=== PATIENT | female | born 2000 | race Two or more races ===

== ENCOUNTER → 2023-07-09 | Outpatient (CLI) | payer OTHER | LOC: M PLALAB 15:41 | PROVIDERS: ATTEND Advanced Practice Midwife | DX: O02.1 Missed abortion (principal) ==

== ENCOUNTER → 2023-08-19 | Outpatient (CLI) | payer OTHER | LOC: M PLALAB 14:37 | PROVIDERS: ATTEND Advanced Practice Midwife | DX: O02.1 Missed abortion (principal) ==

== ENCOUNTER → 2023-08-21 | Outpatient (CLI) | payer OTHER ==
[2023-08-21 14:12] LABS: HEMATOCRIT 38.6 % (36.0-47.0); HEMOGLOBIN 12.7 g/dl (12.0-15.5); MEAN CORPUSCULAR HEMOGLOBIN 31.1 pg (27.0-33.0); MEAN CORPUSCULAR HGB CONC 32.9 g/dl (32.0-36.5); MEAN CORPUSCULAR VOLUME 94.6 fl (80.0-96.0); PLATELET COUNT, AUTOMATED 287 10^3/uL (150-450); RED BLOOD COUNT 4.08 10^6/uL (4.00-5.40); WHITE BLOOD COUNT 6.6 10^3/uL (4.0-10.0)
== END ==
LOC: M PLALAB 10:09
PROVIDERS: ATTEND Advanced Practice Midwife
DX: O02.1 Missed abortion (principal); Z3A.00 Weeks of gestation of pregnancy not specified

== ENCOUNTER → 2023-08-24 | Outpatient (CLI) | payer OTHER | LOC: M PLALAB 12:40 | PROVIDERS: ATTEND Advanced Practice Midwife | DX: O02.81 Inappropriate change in quantitative human chorionic gonadotropin (hCG) in early pregnancy (principal) ==

== ENCOUNTER → 2023-08-27 | Outpatient (REF) | payer OTHER | LOC: M SFHCWAGY 17:56 | PROVIDERS: ATTEND Advanced Practice Midwife | DX: O02.81 Inappropriate change in quantitative human chorionic gonadotropin (hCG) in early pregnancy (principal) ==

== ENCOUNTER → 2023-08-31 | Outpatient (REF) | payer OTHER ==
[2023-08-31 16:15] LABS: HCG, SERUM QUANTITATIVE 644.8 MIU/ML (<4.2)
[2023-08-31 16:16] LABS: ALBUMIN 4.1 G/DL (3.2-5.2); ALKALINE PHOSPHATASE 55 U/L (46-116); ALT/SGPT 62 U/L (7.0-40); AST/SGOT 49 U/L (<34); BILIRUBIN,TOTAL 0.5 MG/DL (0.3-1.2); BLOOD UREA NITROGEN 12 MG/DL (9-23); CALCIUM LEVEL 9.4 MG/DL (8.5-10.1); CARBON DIOXIDE LEVEL 30 MMOL/L (20-31); CHLORIDE LEVEL 103 MMOL/L (98-107); CREATININE FOR GFR 0.58 MG/DL (0.55-1.30); GLOMERULAR FILTRATION RATE > 60.0 (>60); GLUCOSE, FASTING 114 MG/DL (60-100); SODIUM LEVEL 139 MMOL/L (136-145)
== END ==
LOC: M SFHCWAGY 15:04
PROVIDERS: ATTEND Advanced Practice Midwife
DX: O02.81 Inappropriate change in quantitative human chorionic gonadotropin (hCG) in early pregnancy (principal)

== ENCOUNTER → 2023-09-07 | Outpatient (CLI) | payer OTHER | LOC: M PLALAB 14:00 | PROVIDERS: ATTEND Specialist | DX: O02.81 Inappropriate change in quantitative human chorionic gonadotropin (hCG) in early pregnancy (principal) ==

== ENCOUNTER → 2023-09-09 | Outpatient (REF) | payer OTHER ==
[2023-09-09 19:59] LABS: HEMATOCRIT 33.7 % (36.0-47.0); HEMOGLOBIN 11.4 g/dl (12.0-15.5); MEAN CORPUSCULAR HEMOGLOBIN 31.9 pg (27.0-33.0); MEAN CORPUSCULAR HGB CONC 33.8 g/dl (32.0-36.5); MEAN CORPUSCULAR VOLUME 94.4 fl (80.0-96.0); PLATELET COUNT, AUTOMATED 318 10^3/uL (150-450); RED BLOOD COUNT 3.57 10^6/uL (4.00-5.40); WHITE BLOOD COUNT 7.5 10^3/uL (4.0-10.0)
[2023-09-09 20:04] LABS: HCG, SERUM QUANTITATIVE 647.1 MIU/ML (<4.2)
[2023-09-09 20:15] LABS: ALBUMIN 3.9 G/DL (3.2-5.2); ALKALINE PHOSPHATASE 48 U/L (46-116); ALT/SGPT 30 U/L (7.0-40); AST/SGOT 16 U/L (<34); BILIRUBIN,TOTAL 0.3 MG/DL (0.3-1.2); BLOOD UREA NITROGEN 13 MG/DL (9-23); CALCIUM LEVEL 8.9 MG/DL (8.5-10.1); CARBON DIOXIDE LEVEL 27 MMOL/L (20-31); CHLORIDE LEVEL 107 MMOL/L (98-107); CREATININE FOR GFR 0.71 MG/DL (0.55-1.30); GLOMERULAR FILTRATION RATE > 60.0 (>60); GLUCOSE, FASTING 88 MG/DL (60-100); POTASSIUM SERUM 4.2 MMOL/L (3.5-5.1); SODIUM LEVEL 137 MMOL/L (136-145); TOTAL PROTEIN 6.9 G/DL (5.7-8.2)
== END ==
LOC: M LAB REF 19:46
PROVIDERS: ATTEND Specialist
DX: O00.90 Unspecified ectopic pregnancy without intrauterine pregnancy (principal)

== ENCOUNTER 2023-09-10 13:15 | Outpatient (CLI) | payer OTHER ==
[~2023-09-10] VITALS: Ht 170.2 cm; Wt 69.3 kg
[2023-09-10 13:25] VITALS: BP 150/75; O2SAT 98
[2023-09-10] MEDS: METHOTREXATE 50MG/2ML VIAL IM ONE (14:26)
[2023-09-10 15:25] VITALS: BP 127/67; O2SAT 98
== END 2023-09-10 15:30 ==
LOC: M INFU 13:15
PROVIDERS: ATTEND Specialist
DX: O00.91 Unspecified ectopic pregnancy with intrauterine pregnancy (principal)
CPT/HCPCS: 96372; J9260

== ENCOUNTER → 2023-09-14 | Outpatient (CLI) | payer OTHER | LOC: M PLALAB 14:46 | PROVIDERS: ATTEND Specialist | DX: O00.90 Unspecified ectopic pregnancy without intrauterine pregnancy (principal); Z3A.00 Weeks of gestation of pregnancy not specified ==

== ENCOUNTER → 2023-09-17 | Outpatient (CLI) | payer OTHER | LOC: M PLALAB 16:02 | PROVIDERS: ATTEND Specialist | DX: O00.90 Unspecified ectopic pregnancy without intrauterine pregnancy (principal) ==

== ENCOUNTER → 2023-09-24 | Outpatient (CLI) | payer OTHER | LOC: M PLALAB 13:44 | PROVIDERS: ATTEND Nurse Practitioner Family | DX: O02.81 Inappropriate change in quantitative human chorionic gonadotropin (hCG) in early pregnancy (principal) ==

== ENCOUNTER → 2023-12-16 | Outpatient (CLI) | payer OTHER | LOC: M PLALAB 09:20 | PROVIDERS: ATTEND Advanced Practice Midwife | DX: Z31.69 Encounter for other general counseling and advice on procreation (principal) ==

== ENCOUNTER → 2023-12-16 | Outpatient (REF) | payer OTHER | LOC: M PLALAB 07:34 | PROVIDERS: ATTEND Advanced Practice Midwife | DX: Z12.4 Encounter for screening for malignant neoplasm of cervix (principal) ==